=== PATIENT | male | born 1980 | race Hispanic/Latino ===

== ENCOUNTER 2017-01-05 20:59 | Emergency (ER) | payer OTHER ==
[~2017-01-05] VITALS: Ht 182.9 cm; Wt 106.6 kg
== END 2017-01-05 22:39 | disposition home or self-care (01) ==
LOC: ED 20:59
DX: K62.5 Hemorrhage of anus and rectum (principal)
CPT/HCPCS: 80053; 85025; 85610; 85730; 99284